=== PATIENT | female | born 2000 | race Caucasian/White ===

== ENCOUNTER 2018-01-18 12:30 | Outpatient (RCR) | payer OTHER, MEDICAID, SELFPAY ==
--- NOTE | 2017-11-14 10:39 | HP.PTEVAL_ITS ---
Patient's Visit Information COREY MORRISON is a 17 year old F referred to Physical Therapy by Bob ROSALES with a diagnosis of BACK PAIN. Date of Evaluation: 11/14/17 Physical Therapist: Niya Cortez Visit Plan Frequency: 2-3x /Week Duration: 4-6 Weeks Plan: POSTURE CORRECTION/STRENGTHENING, INSTRUCTION IN APPROPRIATE BODY MECHANICS AND ACTIVITY MODIFICATIONS. DLS STARTING WITH A NEUTRAL SPINE PROGRESSING ROM TOLERATED. NUSRAT LE ROM, STRETCHING AND STRENGTHENING. HEP INSTRUCTION. 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 PATIENT IS ALSO A STUDENT AT [employer]. Disability: NO. Present symptoms: MID AND LOW BACK INTO LEFT LOW BACK AND THIGH. PATIENT DENIES NUMBNESS OR TINGLING. Present since: ABOUT A MONTH AGO. LEFT THIGH STARTED LATER...ABOUT 2 WEEKS AGO. Pain Scale: WORST 6/10, LEAST0/10. Currently: 3/ 10 LEFT THIGH RIGHT NOW. 2/10 IN LOW BACK. Commenced as a result of: NO APPARENT REASON. Symptoms at onset: EYE SWELLING. LEAD TO SPINAL TAP. GOT A SPINAL HEADACHE AND BLOOD PATCH. Worse: STANDING, MOVING THE WRONG WAY, LIFTING, TWISITNG, GETTING UP OUT OF BATH. Better: NOTHING. Disturbed sleep: NO. Previous history/Previous treatment: UNREMARKABLE. Coughing/sneezing/ straining: NO. Gait: NORMAL BUT LEFT LEG HURTS. Difficulty initiating urinatin: NO. Accidents: NO. Unexplained weight loss: NO. Imaging: NONE. PMH: ANXIETY. Recent major surgery: NO. OTHER: PATIENT REPORTS SHE WAS HAVING TROUBLE WITH HER EYE'S GOING BLACK AND BEING SPOTTY AROUND TIME FRAME SO SHE WENT TO THE EYE DOCTOR. SHE WAS DIAGNOSED WITH OPTIC NERVE SWELLING AND THEY DON'T KNOW WHY. CAT SCAN AND MRI AND MRV OF BRAIN AND THEY WERE ALL NORMAL. THEN THEY DID A SPINAL TAP AND SHE STATES THEY DIDN'T FIND ANYTHING BECAUSE THEY DIDN'T FOLLOW THE ORDER AND DID IT WRONG. 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 SHE IS TAKING MEDICATION FOR IT NOW AND HER EYES ARE GETTING BETTER BUT STILL HAVING SOME TROUBLE WITH THEM. SHE STILL HAS SOME SPOTTINESS AND STATES IT MIGHT PERMANANT. SHE REPORTS SHE HAD SHOTS FROM DR. HERRERA LAST THURSDAY (5 DAYS AGO). SHE REPORTS THE SHOTS HELPED HER LEFT LBP BUT NOT THE THIGH PAIN. SHE SAW A NEUROLOGIST THAT ORDERED HER IMAGING AND STARTED THE MEDS. THAT DOCTOR TOLD HER NOT TO GO TO A CHIROPRACTOR. *PATIENT IS HAVING DIFFICULTY RECALLING/REPORTING WHEN HER DIFFERENT SX'S ACTUALLY STARTED AND TIME FRAMES RELATING TO DRAriel APPOINTMENTS AND PROCEDURES. SOCIAL - LIVES WITH MOM. HAS 3 YEAR OLD DAUGHTER THAT LIVES WITH HER AND HER MOM TOO. - Objective Sitting Posture: POOR. Standing Posture: POOR. Lordosis: NORMAL. Lateral shift: NO. Relevant shift: N/A. Active Correction of posture: THE SAME OR BETTER BUT INCREASED PAIN TRANSITIONING FROM SLOUCH TO ERECT POSTURE. Other Observations: INDEP GAIT INTO PT WITHOUT ANY ASSISTIVE DEVICES OR GROSS DEVIATIONS NOTED. INDEP TRANSFERS WITHOUT MUCH GUARDING. Motor deficit: NUSRAT LE 'S 5/5 WITH MMT. Sensory deficit: NUSRAT LE LIGHT TOUCH SENSATION IS INTACT AND SYMMETRICAL. ROM deficit: TIGHT NUSRAT HS'S AND GASTROC SOLEUS COMPLEX'S. GOOD NUSRAT HIP ROM. Reflexes: UNABLE TO ELICIT NUSRAT LE DTR'S. Dural Signs: NEGATIVE RIGHT AND POSTIVE LEFT LE DURAL SIGN. Lumbar mvmt loss: flex - MODERATE - PULLS IN LEFT LATERAL THIGH. ext - MAJOR - HURTS IN CENTRAL AND LEFT LOW BACK. R SG - MIN - PULLS IN LEFT LATERAL THIGH. L SG - NIL - NO INCREASED PAIN. Core strength: POOR. Palpation: PATIENT DOES NOT HAVE ANY ACUTE TENDERNESS WITH PALPATION OF HER THORACIC, LUMBAR, SACRAL, PELVIC OR THIGHT AREAS EXCEPT SOME TENDERNESS OF THE LEFT LATERAL THIGH. OTHER: NUSRAT ARSENIO TESTS - NEGATIVE - Goals Goal 1:: DECREASE C/O BACK PAIN Goal Time Frame: 4-6 Weeks Goal 2:: IMPROVE BENDING, LIFTING, PUSHING, PULLING, STANDING, ADL, AND WORK FUNCTION Goal Time Frame: 4-6 Weeks Goal 3:: INSTRUCT IN PROPHYLAXIS Goal Time Frame: 4-6 Weeks - Rehabilitation Potential Rehabilitation Potential: Good - Anticipated Interventions Patient/Client Instruction: Educate patient on: Condition, Plan of Care, Risk Factors, Benefits of Fitness Program For the Purpose of:: To improve self management Therapeutic Exercise to Include: Strength training, Body mechanics, Postural training, Flexibilty training, In an aquatic setting, Dynamic Lumbar Stabilization, Scapular Strength/Stabilization Comment: PATIENT WAS RELUCTANT AT FIRST TO DO AQUATIC THERAPY BUT STATES SHE IS WILLING TO GIVE IT A TRY. For the Purpose of:: To improve ability of physical actions for home/community/ work/leisure Thank you for the opportunity to evaluate your patient. For Medicare and Medicare HMO plans, please review the plan of care and approve it. It will need to be FAXED BACK to us at [phone] for Medicare purposes. Please let me know if there are questions or concerns regarding this plan of care. Physician Signature: Date:
--- NOTE | 2017-12-18 10:08 | HP.PTREVAL_ITS ---
Bob Herrera, It has been my pleasure to treat COREY MORRISON over the last 8 visits for BACK PAIN. Please see the progress note below for an update on the physical therapy plan of care! Subjective: PATIENT ARRIVED LATE. STATES THE THINGS SHE HAS BEEN TAUGHT ARE HELPFUL BUT NOT ABLE TO BE VERY COMPLIANT. STATES SHE CAN ONLY COME TO PT CERTAIN TIMES AND WHEN SHE DOES SHE IS VERY RUSHED NEEDING TO GET BACK TO SCHOOL. STILL GETTING UP TO 5/10 LEFT LOW BACK AND LEFT THIGH PAIN. STILL GETTING PAIN GOING UP HER BACK. PATIENT REPORTS SHE HAS A FOLLOW UP WITH NEUROLOGIST MONDAY. SHE REPORTS THAT THE INJECTION FROM DR. HERRERA AND PT REALLY HAVE NOT HELPED MUCH. PATIENT REPORTS IT IS VERY STRESSFUL FOR HER TO TRY TO GET HERE FOR THERAPY AND IT IS A PAIN RUNNING BACK AND FOURTH. Objective/Function: UPON EXAM, PATIENT HAS INCREASED LUMBAR ROM INTO FLEX AND EXTENSION BUT SHE HAS HAS MISSED SOME APPOINTMENT S AND HAS ONLY HAD 6 POOL VISITS. SHE IS ALSO NOT ABLE TO COMMUNICATE A GOOD UNDERSTANDING OF HOME INSTRUCTIONS GIVEN. CURRENTLY LUMBAR MVMT LOSS IS: FLEX - MIN, EXT - MIN, LEFT SG - NIL, RIGHT SG- MIN. FLEX AND RIGHT SG TESTING ARE THE ONLY PLANES THAT PROVOKE PAIN TODAY. AT THIS POINT I WOULD RECOMMEND A TRIAL OF LAND BASED PT UNDER SAME POC TO TRY TO ALLEVIATE SOME OF THE STRESS PATIENT HAS COMING AT THE AVAILABLE POOL TIMES. SHE IS RELUCTANT BUT AGREEABLE TO SCHEDULING MORE VISITS. Plan Plan: CONT PER POC ON LAND VS WATER. Goals Goal 1:: DECREASE C/O BACK PAIN Goal Time Frame: 4-6 Weeks Goal 2:: IMPROVE BENDING, LIFTING, PUSHING, PULLING, STANDING, ADL, AND WORK FUNCTION Goal Time Frame: 4-6 Weeks Goal 3:: INSTRUCT IN PROPHYLAXIS Goal Time Frame: 4-6 Weeks Anticipated Interventions Patient/Client Instruction: Educate patient on: Condition, Plan of Care, Risk Factors, Benefits of Fitness Program For the Purpose of:: To improve self management Therapeutic Exercise to Include: Strength training, Body mechanics, Postural training, Flexibilty training, In an aquatic setting, Dynamic Lumbar Stabilization, Scapular Strength/Stabilization Comment: PATIENT WAS RELUCTANT AT FIRST TO DO AQUATIC THERAPY BUT STATES SHE IS WILLING TO GIVE IT A TRY. For the Purpose of:: To improve ability of physical actions for home/community/ work/leisure Please do not hesitate to contact me at [phone] by phone or Fax: if you have questions or concerns regarding this new plan of care! Sincerely, Niya Arreguin
--- NOTE | 2018-01-18 14:02 | HP.PTDCSUM_ITS ---
HP - PT D/C Summary It has been my pleasure to treat COREY MORRISON under orders from DR.ABASAL Gabe for the diagnosis of BACK PAIN for a total of 11 visit(s). Discharge Date: Please see the following information for a summary of their discharge status. - Subjective Subjective: PATIENT REPORTS SHE STILL GETS SOME LOW BACK AND AT TIMES LEFT THIGH PAIN. - Pain LLE Pain Intensity (Out of 10): 2 LB Pain Intensity (Out of 10): 4 - Objective Objective/Function: THIS PATIENT AMBULATES INDEP'LY INTO PT WITHOUT ANY ASSISTIVE DEVICES OR GROSS DEVIATIONS NOTED. NUSRAT LE LIGHT TOUCH SENSATION IS INTACT AND SYMMETRICAL. UNABLE TO ELICIT NUSRAT LE DTR'S. NUSRAT LE'S 5/5 WITH MMT' ING. CORE STRENGTH IS FAIR AND SHE IS CHALLENGED BY HER HEP. SHE IS NOT TENDER WITH PALPATION OF HER SPINE OR HIPS. LUMBAR MVMT LOSS: FLEX - MIN, EXT - MIN, NUSRAT SG - NIL. NEGATIVE NUSRAT LE DURAL SIGNS. PATIENT IS NOW INDEP WITH A HOME EX PROGRAM, PROPER POSTURE CONTROL AND BODY MECHANICS. ALL GOALS MET. RECOMMEND D/C - Goals Goal 1:: DECREASE C/O BACK PAIN Goal Progress: Goal Met Goal 2:: IMPROVE BENDING, LIFTING, PUSHING, PULLING, STANDING, ADL, AND WORK FUNCTION Goal Progress: Goal Met Goal 3:: INSTRUCT IN PROPHYLAXIS Goal Progress: Goal Met - Plan Plan: D/C TO HEP. PATIENT IS AGREEABLE. SHE DOES STILL REPORT GETTING PAIN AND SHE PLANS TO FOLLOW UP WITH PAIN MGMT NEEDED. - D/C Information If there are questions or concerns regarding this patient's physical therapy, please feel free to call me at [phone]. Thank you for the referral of this patient. Sincerely, Niya Arreguin
== END 2018-01-18 14:17 | disposition home or self-care (01) ==
LOC: PT 12:30
PROVIDERS: Family Provider Anesthesiology Pain Medicine; Visit Provider Anesthesiology Pain Medicine
DX: M54.9 Dorsalgia, unspecified (principal)
CPT/HCPCS: 97110; 97113; 97162; 97530

== ENCOUNTER → 2018-02-12 10:48 | Outpatient (CLI) | payer OTHER, MEDICAID, SELFPAY ==
--- NOTE | 2018-02-12 10:52 | RAD_ITS ---
STUDY: X-RAY - LUMBAR SPINE REASON FOR EXAM: Female, 17 years old. Low back pain. TECHNIQUE: 3 view(s) of the lumbar spine were obtained. COMPARISON: None FINDINGS: There is straightening of the normal lumbar lordosis. There is no substantial scoliosis. There is a normal alignment of the vertebrae. Normal vertebral bodies and endplates. Normal disc space heights. There is no demonstrated fracture. The soft tissue structures are unremarkable. RAD/Lumbar Spine 2 or 3 Views IMPRESSION: Normal x-ray examination of the lumbar spine. Electronically Signed: Parviz Meraz MD at 20:29 EDT , Service support ,
== END ==
PROVIDERS: Family Provider Family Medicine; PCP Family Medicine; Visit Provider Anesthesiology Pain Medicine
DX: M54.5 Low back pain (principal)
CPT/HCPCS: 72100

== ENCOUNTER → 2018-03-05 10:17 | Outpatient (CLI) | payer OTHER, MEDICAID, SELFPAY ==
--- NOTE | 2018-03-05 10:19 | MRI_ITS ---
STUDY: MRI LUMBAR SPINE WITHOUT CONTRAST REASON FOR EXAM: Female, 17 years old. BACK PAIN,LEFT LEG PAIN,NKI. TECHNIQUE: Standardized fat and water weighted pulse sequences were obtained in the sagittal and axial planes. COMPARISON: None FINDINGS: T12-L1: Normal endplates. Normal disc height, hydration and morphology. Normal bilateral facet joints. Normal central canal and bilateral lateral recesses. Normal bilateral intervertebral neural foramina. There is straightening of the normal lumbar lordosis. There is no substantial scoliosis. Normal conus medullaris that terminates at the T12 L1-2: There is a small chronic Schmorl's nodes. Normal disc height, hydration and morphology. Normal bilateral facet joints. Normal central canal and bilateral lateral recesses. Normal bilateral intervertebral neural foramina. L2-3: There is a small chronic Schmorl's nodes. Normal disc height, hydration and morphology. Normal bilateral facet joints. Normal central canal and bilateral lateral recesses. Normal bilateral intervertebral neural foramina. L3-4: There is a small chronic Schmorl's nodes. Normal disc height, hydration and morphology. Normal bilateral facet joints. Normal central canal and bilateral lateral recesses. Normal bilateral intervertebral neural foramina. L4-5: Normal endplates. Normal disc height, hydration and morphology. Normal bilateral facet joints. Normal central canal and bilateral lateral recesses. Normal bilateral intervertebral neural foramina. L5-S1: Normal endplates. Normal disc height, hydration and morphology. Normal bilateral facet joints. Normal central canal and bilateral lateral recesses. Normal bilateral intervertebral neural foramina. Normal visualized sacral ala. Normal visualized paraspinous soft tissue structures. MRI/Spine Lumbar (Routine) IMPRESSION: Small chronic Schmorl's nodes. No central canal or foraminal stenosis. Electronically Signed: Doroteo Marcum MD at 8:16 EDT Tel , Service support ,
== END ==
PROVIDERS: Family Provider Family Medicine; PCP Family Medicine; Visit Provider Anesthesiology Pain Medicine
DX: M54.9 Dorsalgia, unspecified (principal); M79.605 Pain in left leg
CPT/HCPCS: 72148

== ENCOUNTER → 2019-06-05 | Outpatient (CLI) | payer OTHER, MEDICAID, SELFPAY ==
[2019-06-05 10:46] VITALS: BMI 34.4
--- NOTE | 2019-06-05 10:55 | RAD_ITS ---
STUDY: X-RAY - RIGHT HAND REASON FOR EXAM: Female, 18 years old. Pain and swelling over the posterior aspect of the hand as well as the second and third digits. Patient could not separate her fingers any farther for the lateral view due to pain level. TECHNIQUE: 3 view(s) of the hand. COMPARISON: None. FINDINGS: Normal radiocarpal articulation. Normal distal radioulnar joint. Normal visualized carpal bones. Normal carpal articulations Normal carpometacarpal articulation of the thumb. Normal second through fifth carpometacarpal joints. Normal metacarpi. Normal metacarpophalangeal joint of the thumb. Normal interphalangeal joint of the thumb. Normal proximal and distal phalanges of the thumb. Calcified bodies in the undersurface of the second metacarpal phalangeal joint. Normal remaining metacarpophalangeal joints. Normal proximal and distal interphalangeal joints of the second through fifth fingers. Normal phalanges of the second through fifth fingers. The soft tissue structures are unremarkable. RAD/Hand Min 3 Views IMPRESSION: 1. No acute osseous abnormality of the right hand. 2. Multiple calcified loose bodies underneath the right second metacarpophalangeal joint. Electronically Signed: Alejandro Raman MD at 15:44 EDT , Service support ,
== END | disposition home or self-care (01) ==
LOC: HPRAD 10:53
PROVIDERS: Family Provider Family Medicine; PCP Family Medicine; Referring Provider Orthopaedic Surgery; Visit Provider Orthopaedic Surgery
DX: M79.644 Pain in right finger(s) (principal)
CPT/HCPCS: 73130

== ENCOUNTER 2020-01-20 21:38 | Emergency (ER) | payer OTHER, MEDICAID, SELFPAY ==
[2019-06-05 10:46] VITALS: BMI 34.4
[2020-01-20 21:39] VITALS: BP 144/89; PULSE 84; RESP 18; TEMP 36.8; O2SAT 97; BMI 35.4
--- NOTE | 2020-01-20 21:49 | ED.VIS.GEN ---
History of Present Illness Chief Complaint: Rash Informant: Patient Onset: Days - 4 days Context: Gradual Onset Current Severity: Moderate Maximum Severity: Moderate Narrative: Patient presents secondary to itchy rash. She states she first noted it 4 days ago. She laid down to take a nap because she was not feeling well but then woke up with red itchy spots over her body. She just completed metronidazole antibiotic. She believes is a reaction to that. She is been taking Claritin in the mornings which she states will help symptoms for about 12 hours but then symptoms recur. She denies throat tightness or shortness of breath. She does not believe she had exposure to bedbugs. Past Medical History - Allergies and Home Meds Allergies/Adverse Reactions: Allergies vancomycin Allergy (Verified 01/20/20 21:41) Colin Primary Care Physician: Scarlet Hobson MD [Primary Care Provider] - Past Medical History: None Smoking Status: Current every day smoker Review of Systems General: Denies: Chills, Fever Eyes: Denies: Visual changes - bilaterally ENT: Denies: Bilateral ear pain Cardiovascular: Denies: Chest pain Respiratory: Denies: Dyspnea, Cough Gastrointestinal: Denies: Abdominal pain, Nausea, Vomiting, Diarrhea Genitourinary: Denies: Dysuria Musculoskeletal: Denies: Extremity Pain Skin: Reports: Rash Neurological: Denies: Headache Hematologic: Denies: Easy bruising, Easy bleeding Allergy: Denies: Uticaria Physical Exam Vital Signs/Narrative: Vital Signs Temp Pulse Resp BP Pulse Ox 01/20/20 21:39 98.2 F 84 18 144/89 H 97 Inital Vital Signs reviewed: Yes General: Well nourished, Well developed Head: Normocephalic ENT: Moist mucous membranes Neck: Supple Cardiovascular: Regular rate, Regular rhythm Respiratory: No distress, CTA bilaterally Abdomen: Soft, Nontender Extremities: Nontender Skin: - - Patient has scattered, erythematous, slightly raised lesions over the extremities as well as trunk. No vesicles. No target lesions. Certain areas of confluence do appear consistent with urticarial lesions. Neurological: Alert, Oriented x3 Psychological: Normal affect Diagnostic/Tx/Re-eval - Medical Decision Making Patient be treated with a course of Benadryl as well as steroids. She will use Claritin in the morning and Benadryl at bedtime. She has already completed the course of antibiotics that she was on so no further exposure should be noted. ED Disposition - Plan for ED Patient: Disposition: Home or Assisted Living Diagnosis: Allergic reaction Instructions: ALLERGIC REACTION, Other (General) Prescriptions: DiphenhydrAMINE [Benadryl] 50 mg PO QHS PRN PRN #14 cap PRN Reason: Rash/Topical Irritation Transmission Status: Pending to [id number] Prednisone [Deltasone] 40 mg PO DAILY #10 tab Transmission Status: Pending to [facility]/pharmacy #[id number] Referrals: Scarlet Hobson MD [Primary Care Provider] - 1 Week if not improving
[2020-01-20] MEDS: predniSONE 20 MG Tablet 60 MG PO (21:57)
[2020-01-20] MEDS: DiphenhydrAMINE 25 MG Capsule 50 MG PO (21:57)
== END 2020-01-20 22:07 | disposition home or self-care (01) ==
PROVIDERS: Emergency Provider Emergency Medicine; PCP Family Medicine
DX: T78.40XA Allergy, unspecified, initial encounter (principal); F17.200 Nicotine dependence, unspecified, uncomplicated
CPT/HCPCS: 99283

== ENCOUNTER → 2023-06-27 | Outpatient (CLI) | payer MEDICAID, SELFPAY ==
[2023-06-29 05:07] LABS: V-Zoster IgG (Immunity) 1742 index (Immune >165)
== END | disposition home or self-care (01) ==
LOC: BFHLAB 14:38
PROVIDERS: PCP Nurse Practitioner Family; Referring Provider Nurse Practitioner Family; Visit Provider Nurse Practitioner Family
DX: Z23 Encounter for immunization (principal)
CPT/HCPCS: 36415; 86787

== ENCOUNTER 2024-11-09 18:20 | Emergency (ER) | payer MEDICAID, OTHER, SELFPAY ==
[2024-11-09 18:20] VITALS: BP 146/87; PULSE 87; RESP 16; TEMP 36.6; O2SAT 100; BMI 35.7
--- NOTE | 2024-11-09 19:16 | EX.ED.VIS.EY ---
HPI <BOZENA Murdock - Last Filed: 11/09/24 20:53> History of Present Illness Chief Complaint: Occup Expose Narrative Narrative: Patient presenting today due to a needlestick injury that occurred around 9:30 AM this morning at work. 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 The resident is not a high risk patient that she is aware of, they will be drawing her blood on Monday. Patient denies any history of hepatitis or HIV. She is up-to-date on her tetanus. PFSH <BOZENA Murdock - Last Filed: 11/09/24 20:53> [facility] Medical History Idiopathic intracranial hypertension Anxiety Back pain Home Medications ?Medication ?Instructions ?Recorded ?Last Taken ?Type escitalopram oxalate 10 mg tablet 20 mg PO DAILY 09/18/17 10/03/17 History acetazolamide 250 mg tablet 250 mg PO BID 30 days ##120 05/28/18 Unknown History Allergy/AdvReac Type Severity Reaction Status Date / Time vancomycin Allergy Hives Verified 11/09/24 18:37 Family History Other Anxiety CVA (cerebral vascular accident) Cancer Social History Smoking Status: Current every day smoker tobacco type: e-cigarettes ROS <BOZENA Murdock - Last Filed: 11/09/24 20:53> ROS ED Constitutional Constitutional ED: Denies chills or fever(s) Cardiovascular Cardiovascular: Denies chest pain Respiratory/Chest Respiratory/Chest: Denies dyspnea Musculoskeletal Musculoskeletal: Denies arthralgias or myalgias Integumentary Reports other Details: Needlestick injury left thumb ; Denies abscess or rash Neurologic Neurologic: Denies paresthesias EXAM <BOZENA Murdock - Last Filed: 11/09/24 20:53> Physical Exam Const Vital Signs: 11/09/24 18:20 Temperature 98 F Temperature Source Oral Pulse Rate 87 Respiratory Rate 16 Blood Pressure 146/87 H Blood Pressure Mean 106 Pulse Ox 100 Oxygen Delivery Method Room Air Positive well nourished, well developed and no apparent distress General Appearance ED: well developed HEENT Reports normocephalic and head/scalp atraumatic Mouth ED: Yes moist mucous membranes normal Eyes PERRL and EOMs intact bilaterally Neck full ROM and supple Resp normal respiratory effort and clear to auscultation bilaterally Cardio regular rate and regular rhythm Back/Spine normal ROM and normal to inspection Extremity normal to inspection and full ROM Extremity Narrative: Small pinprick to finger pad of left thumb where needlestick injury occurred. No active bleeding, neurovascularly intact. Neuro oriented x3, CN's II-XII intact bilaterally, moves all extremities, no focal motor deficits and no sensory deficits noted Sensorium / Orientation: awake and alert Psych mental status grossly normal and thought process normal Skin Rashes: no rashes [facility] <BOZENA Murdock - Last Filed: 11/09/24 20:53> [facility] Narrative Medical decision making narrative: Patient presenting today due to a accidental needlestick injury that occurred this morning around 9:30 AM. The resident at the nursing facility does not have any history of hepatitis or HIV that she is aware of and neither does the patient. They are drawing labs off of the resident at the alf. She does not have any signs of infection on exam. HIV, hepatitis B and C labs were obtained. Wound was cleansed and bandaged. She is to follow-up with [facility] and will be discharged in stable condition. <Dr. Isaiah Ham MD - Last Filed: 11/09/24 22:43> [facility] Treatment and Re-Evaluation Narrative: I have personally performed a face to face assessment of the patient and have reviewed the ANTONIO Note. I performed a substantive portion of the visit including all aspects of the following. My javed findings include: History is accidental needlestick injury by a healthcare provider working at a alf. She gave a patient an intramuscular injection, and then accidentally poked herself in the left thumb. Patient does not have any known history of HIV, hepatitis, other other STD and neither does the patient. She denies any other injury. Exam is single nonbleeding noninfected nontender needlestick injury at the pad of the left thumb. No nail damage. Medical Decison Making labs drawn [facility], cleansed and given bacitracin dressing. Other additions or changes: [None] Discharge Plan Triage Chief Complaint: Occup Expose ED Midlevel Provider: Floridalma Russ ED Provider: Isaiah Ham Dx/Rx/DC Orders Clinical Impression: Exposure to body fluid due to accidental needlestick injury Instructions: ED Puncture Wound (General) Prescriptions: No Action acetazolamide 250 mg tablet 250 mg PO BID 30 Days Qty: 120 Patient Comments: escitalopram oxalate 10 MG tablet 20 mg PO DAILY Primary Care Provider: Scarlet Hobson Referrals: Scarlet Hobson MD [Primary Care Provider] - 5-7 Days Print Language: Romansh Disposition Disposition: Home, Self Care Discharge Date/Time: 11/09/24 19:43
[2024-11-09 19:42] VITALS: BP 122/70; PULSE 76; RESP 18; TEMP 36.7; O2SAT 100
[2024-11-09 20:11] LABS: HIV - WCH Non-Reactive (Nonreactive); Hepatitis B Surface Antibody Reactive; Hepatitis B Surface Antigen Non-Reactive (Nonreactive); Hepatitis C Antibody Non-Reactive (Nonreactive)
== END 2024-11-09 19:43 | disposition home or self-care (01) ==
PROVIDERS: Emergency Provider Emergency Medicine; PCP Family Medicine; Visit Provider Emergency Medicine
DX: S61.032A Puncture wound without foreign body of left thumb without damage to nail, initial encounter (principal); W46.0XXA Contact with hypodermic needle, initial encounter; Y92.129 Unspecified place in nursing home as the place of occurrence of the external cause; Y99.0 Civilian activity done for income or pay; G93.2 Benign intracranial hypertension; F41.9 Anxiety disorder, unspecified; Z88.1 Allergy status to other antibiotic agents; Z79.899 Other long term (current) drug therapy; F17.290 Nicotine dependence, other tobacco product, uncomplicated; Z77.21 Contact with and (suspected) exposure to potentially hazardous body fluids
CPT/HCPCS: 86703; 86706; 86803; 87340; 99282

== ENCOUNTER → 2025-08-08 | Outpatient (CLI) | payer SELFPAY ==
[2025-08-08 19:22] LABS: Hematocrit 38.4 % (37-47); Hemoglobin 11.9 g/dL (12.0-15.0); Immature Granulocytes Count 0.030 X10^3/uL (0.0-0.0); Mean Corp Hgb Conc 31.0 g/dL (32-36); Mean Corpuscular Volume 82.4 fL (81-99); Mean Platelet Vol. 9.7 fl (6.2-12.0); NRBC Flagged by Analyzer 0 % (0-5); Platelet Count 317 K/mm3 (150-450); RBC Distribution Width CV 14.5 % (11.6-14.6); RBC Distribution Width SD 42.8 fl (35.1-43.9); Red Blood Count 4.66 M/mm3 (4.2-5.4); White Blood Count 10.0 K/mm3 (4.4-11.0)
[2025-08-08 19:43] LABS: Ferritin 21 ng/mL (22-378)
[2025-08-14 15:09] LABS: Age Gdln ACOG Testing 21-29 (.)
== END | disposition home or self-care (01) ==
PROVIDERS: PCP Family Medicine; Referring Provider Family Medicine; Visit Provider Family Medicine
DX: Z12.4 Encounter for screening for malignant neoplasm of cervix (principal); R53.83 Other fatigue
CPT/HCPCS: 36415; 82728; 84443; 85025; 88175; G0145

== ENCOUNTER → 2025-09-11 | Outpatient (CLI) | payer MEDICAID, SELFPAY | END | disposition home or self-care (01) | LOC: SL 13:07 | PROVIDERS: PCP Family Medicine; Referring Provider Family Medicine; Visit Provider Family Medicine | DX: G47.33 Obstructive sleep apnea (adult) (pediatric) (principal) | CPT/HCPCS: 95806 ==